=== PATIENT | male | born 1980 | race Caucasian/White ===

== ENCOUNTER 2019-03-07 22:18 | Emergency (ER) | payer OTHER, SELFPAY ==
[2019-03-07 22:23] VITALS: BP 131/91; PULSE 100; RESP 18; TEMP 36.6; O2SAT 95
--- NOTE | 2019-03-07 22:35 | W.ED.GENAD ---
Discharge Plan Disposition Patient Disposition: HOME Discharge Details Chief Complaint: Laceration Clinical Impression: Laceration of finger of right hand Primary Care Provider: Kay Tom ED Provider: Mark Gustasfon Home Meds and New Rx's Prescriptions: Continued albuterol sulfate 90 mcg/actuation Hfa Aerosol Inhaler 2 puff INHALATION QID PRNRF: 0 Discharge Instructions Instructions: Finger Laceration (ED) Additional Instructions: Please contact your primary care physician or return to the emergency department for suture removal. Sutures need to be removed in 8-10 days. Return to the ER for any worsening or new concerning symptoms. Referrals: Kay Tom [Primary Care Provider] - Medical Decision Making 38-year-old male here with laceration to his right fifth digit. Neurovascular intact distally. Topical anesthetic applied. Finger Tourni-cot applied. Wound irrigated with copious sterile saline and repaired primarily with 4 sutures. Boostrix tetanus immunization given. HPI General Mode of arrival: ambulatory. Date/Time Provider Initiated Documentation: 03/07/19 22:35. Limitations to Documentation: no limitations. Information obtained by: patient. HPI Narrative: 38-year-old male here with laceration. Patient notes he sustained laceration to his right fifth digit just prior to arrival. Laceration occurred while washing dishes. He cut his finger on a broken glass. Laceration severe. Was initially bleeding. Bleeding controlled with pressure. No weakness or numbness. Related Data Home Medications Medication Instructions Recorded Confirmed albuterol sulfate 2 puff INHALATION QID PRN 03/07/19 03/07/19 Allergies Allergy/AdvReac Type Severity Reaction Status Date / Time azithromycin Allergy Unverified 03/07/19 22:25 Penicillins Allergy Unverified 03/07/19 22:25 General Stated Complaint: Laceration VIANNEY: 4 Review of Systems Integumentary/Breasts Reports as per HPI Neurologic Reports as per HPI [facility], [facility] Medical History Asthma (Chronic) Social History Smoking/Tobacco Use Status: Current every day Tobacco Type: cigarettes Smoking cigarettes per day: 3 Alcohol Intake: current Alcohol Intake frequency: a few times a week Drug use: Daily Substance use type: marijuana Do you feel safe at home: Yes Do you feel safe in your relationship?: Yes Exam Const General: cooperative and no acute distress Skin Trauma: laceration (Right fifth digit lateral mid finger, curvilinear, oozing blood) Extrem Right upper extremity: hand (Fifth digit laceration as noted above, two-point discrimination intact) Details: neuromotor exam normal, tendon exam normal and normal ROM of fingers Course Vital Signs Temperature 36.6 C 03/07/19 22:23 Pulse 100 H 03/07/19 22:23 Respiratory Rate 18 03/07/19 22:23 Blood Pressure 131/91 H 03/07/19 22:23 Pulse Oximetry 95 03/07/19 22:23 Temperature 36.6 C 03/07/19 22:23 Temperature Source Skin 03/07/19 22:23 Pulse 100 H 03/07/19 22:23 Respiratory Rate 18 03/07/19 22:23 Respiratory Effort Non-Labored 03/07/19 22:26 Blood Pressure 131/91 H 03/07/19 22:23 Blood Pressure Position Sitting 03/07/19 22:23 Pulse Oximetry 95 03/07/19 22:23 Oxygen Delivery Method Room Air 03/07/19 22:23 Oxygen Flow Rate 0 03/07/19 22:23 Pain Level 2 03/07/19 22:23 Procedures Laceration Laceration 1: Site: hand Side (If applicable): right Size (cm): 2 Description: linear Depth: simple, single layer Local Anesthetic: other anesthetic Pre-repair: wound explored, irrigated extensively, deep structures intact and extensive debridement Skin layer closed with: vicryl Size (cm): 5-0 Number of sutures: 4 Technique: simple, interrupted
--- NOTE | 2019-03-07 22:39 | ED.GENADUL_ITS ---
Discharge Plan Disposition Patient Disposition: HOME Discharge Details Chief Complaint: Laceration Clinical Impression: Laceration of finger of right hand Primary Care Provider: Kay Tom ED Provider: Mark Gustafson Home Meds and New Rx's Prescriptions: Continued albuterol sulfate 90 mcg/actuation Hfa Aerosol Inhaler 2 puff INHALATION QID PRNRF: 0 Discharge Instructions Instructions: Finger Laceration (ED) Additional Instructions: Please contact your primary care physician or return to the emergency department for suture removal. Sutures need to be removed in 8-10 days. Return to the ER for any worsening or new concerning symptoms. Referrals: Kay Tom [Primary Care Provider] - Medical Decision Making 38-year-old male here with laceration to his right fifth digit. Neurovascular intact distally. Topical anesthetic applied. Finger Tourni-cot applied. Wound irrigated with copious sterile saline and repaired primarily with 4 sutures. Boostrix tetanus immunization given. HPI General Mode of arrival: ambulatory . Date/Time Provider Initiated Documentation: 03/07/19 22:35 . Limitations to Documentation: no limitations . Information obtained by: patient . HPI Narrative: 38-year-old male here with laceration. Patient notes he sustained laceration to his right fifth digit just prior to arrival. Laceration occurred while washing dishes. He cut his finger on a broken glass. Laceration severe. Was initially bleeding. Bleeding controlled with pressure. No weakness or numbness. Related Data Home Medications Medication Instructions Recorded Confirmed albuterol sulfate 2 puff INHALATION QID PRN 03/07/19 03/07/19 Allergies Allergy/AdvReac Type Severity Reaction Status Date / Time azithromycin Allergy Unverified 03/07/19 22:25 Penicillins Allergy Unverified 03/07/19 22:25 General Stated Complaint: Laceration VIANNEY: 4 Review of Systems Integumentary/Breasts Reports as per HPI Neurologic Reports as per HPI [facility] Medical History Asthma (Chronic) Social History Smoking/Tobacco Use Status: Current every day Tobacco Type: cigarettes Smoking cigarettes per day: 3 Alcohol Intake: current Alcohol Intake frequency: a few times a week Drug use: Daily Substance use type: marijuana Do you feel safe at home: Yes Do you feel safe in your relationship?: Yes Exam Const General: cooperative and no acute distress Skin Trauma: laceration (Right fifth digit lateral mid finger, curvilinear, oozing blood) Extrem Right upper extremity: hand (Fifth digit laceration as noted above, two-point discrimination intact) Details: neuromotor exam normal, tendon exam normal and normal ROM of fingers Course Vital Signs Temperature 36.6 C 03/07/19 22:23 Pulse 100 H 03/07/19 22:23 Respiratory Rate 18 03/07/19 22:23 Blood Pressure 131/91 H 03/07/19 22:23 Pulse Oximetry 95 03/07/19 22:23 Temperature 36.6 C 03/07/19 22:23 Temperature Source Skin 03/07/19 22:23 Pulse 100 H 03/07/19 22:23 Respiratory Rate 18 03/07/19 22:23 Respiratory Effort Non-Labored 03/07/19 22:26 Blood Pressure 131/91 H 03/07/19 22:23 Blood Pressure Position Sitting 03/07/19 22:23 Pulse Oximetry 95 03/07/19 22:23 Oxygen Delivery Method Room Air 03/07/19 22:23 Oxygen Flow Rate 0 03/07/19 22:23 Pain Level 2 03/07/19 22:23 Procedures Laceration Laceration 1: Site: hand Side (If applicable): right Size (cm): 2 Description: linear Depth: simple, single layer Local Anesthetic: other anesthetic Pre-repair: wound explored, irrigated extensively, deep structures intact and extensive debridement Skin layer closed with: vicryl Size (cm): 5-0 Number of sutures: 4 Technique: simple, interrupted
[2019-03-07] MEDS: Lidocaine/Epinephri/Tetracaine Topical Gel 3 ML TP (22:50)
--- NOTE | 2019-03-07 23:12 | DI.RAD_ITS ---
SYMPTOM/DIAGNOSIS: LACERATION RIGHT FIFTH FINGER: No acute fracture or dislocation is identified. No radiopaque foreign bodies are seen in the soft tissues. IMPRESSION: No acute abnormality.
--- NOTE | 2019-03-08 00:36 | DI.VRAD_ITS ---
EXAM: XR Right Finger(s), 2 or More Views EXAM DATE/TIME: 03/07/2019 11:13 PM CLINICAL HISTORY: 38 years old, male; Signs and symptoms; Other: Laceration TECHNIQUE: Imaging protocol: XR Right finger minimum 2 views. COMPARISON: No relevant prior studies available. FINDINGS: Bones/joints: Joint spaces are maintained. No acute fracture or dislocation. Soft tissues: No radiopaque foreign body. IMPRESSION: No acute fracture or dislocation. Dictated and Authenticated by: Brandon Brooks MD. Ordering:TAZ Flores MD
== END 2019-03-07 23:49 | disposition home or self-care (01) ==
PROVIDERS: Emergency Provider Student in an Organized Health Care Education/Training Program; PCP Nurse Practitioner Family
DX: S61.216A Laceration without foreign body of right little finger without damage to nail, initial encounter (principal); W25.XXXA Contact with sharp glass, initial encounter
CPT/HCPCS: 12001; 90471; 99283; 73140; 99282

== ENCOUNTER 2019-05-12 07:53 | Outpatient (REF) | payer OTHER, SELFPAY ==
[2019-05-12 12:24] LABS: Anion Gap 9.8 mmol/L (3-11); BUN 19 mg/dL (7-18); CO2 25.2 mmol/L (21.0-32.0); CREATININE 1.12 mg/dL (0.70-1.30); Calcium 9.1 mg/dL (8.5-10.1); Calculated LDL 120; Chloride 102 mmol/L (98-107); Cholesterol 188 mg/dL (50-200); Glucose 107 mg/dL (70-100); HDL Cholesterol 43 mg/dL (40-60); Potassium 4.2 mmol/L (3.5-5.1); Sodium 137 mmol/L (136-145); Triglyceride 128 mg/dL (30-150)
== END 2019-05-12 08:13 ==
LOC: NCHCN 07:53
PROVIDERS: PCP Nurse Practitioner Family; Visit Provider Nurse Practitioner Family
DX: Z13.220 Encounter for screening for lipoid disorders (principal); Z13.1 Encounter for screening for diabetes mellitus; Z83.3 Family history of diabetes mellitus
CPT/HCPCS: 80048; 80061; 83721

== ENCOUNTER 2021-05-14 21:08 | Outpatient (REF) | payer OTHER, SELFPAY ==
[2021-05-14 14:10] LABS: HCT 45.3 % (40.0-50.0); HGB 15.6 g/dL (13.5-17.5); MCHC 34.4 % (32.0-36.0); MCV 95.8 fL (80-95); MPV 9.5 fL (8.0-11.0); Platelet Count 268 10^3/uL (130-400); RBC 4.73 10^6/uL (4.36-5.78); RDW 12.3 % (11.8-14.1); RDW-SD 43.7 fL; WBC 6.33 10^3/uL (4.4-10.8)
[2021-05-14 14:40] LABS: ALT 48 U/L (16-63); AST 26 U/L (15-37); Albumin 4.1 g/dL (3.4-5.0); Alkaline Phosphatase 84 U/L (46-116); Anion Gap 12.3 mmol/L (3-11); BUN 13 mg/dL (7-18); Bilirubin, Total 0.6 mg/dL (0.2-1.0); CO2 23.7 mmol/L (21.0-32.0); CREATININE 1.1 mg/dL (0.70-1.30); Calcium 9.4 mg/dL (8.5-10.1); Chloride 105 mmol/L (98-107); Glucose 118 mg/dL (74-106); Sodium 141 mmol/L (136-145); TSH (W/Ref FT4) 2.27 uIU/mL (0.36-3.74); Total Protein 7.3 g/dL (6.4-8.2)
== END 2021-05-14 21:09 | disposition home or self-care (01) ==
LOC: NCHCN 21:08
PROVIDERS: PCP Nurse Practitioner Family; Visit Provider Family Medicine
DX: R63.4 Abnormal weight loss (principal); R25.1 Tremor, unspecified
CPT/HCPCS: 80053; 85027; 84443

== ENCOUNTER 2023-11-30 14:57 | Outpatient (REF) | payer OTHER, SELFPAY ==
[2023-11-30 15:30] LABS: Abs Immature Grans 0.01 10^3/uL (0.0-0.06); Absolute Basophil Count 0.03 10^3/uL (0.0-0.2); Absolute Eosinophil Count 0.11 10^3/uL (0.0-0.7); Absolute Monocyte Count 0.52 10^3/uL (0.1-0.8); Absolute Neutrophil Count 3.33 10^3/uL (1.2-6.7); Basophils % 0.6; Eosinophils % 2.2; HCT 41.3 % (40.0-50.0); HGB 13.9 g/dL (13.5-17.5); Immature Grans % 0.2; MCH 30.9 pg (27.0-33.0); MCHC 33.7 % (32.0-36.0); MCV 92 fL (80-95); MPV 9.1 fL (8.0-11.0); Monocytes % 10.4; Neutrophils % 66.6; Platelet Count 335 10^3/uL (130-400); RDW 12.3 % (11.8-14.1); RDW-SD 41.2 fL
[2023-11-30 16:13] LABS: Hemoglobin A1C 5.1 % (<5.7)
[2023-11-30 16:30] LABS: ALT 53 U/L (16-63); AST 33 U/L (15-37); Albumin 4.2 g/dL (3.4-5.0); Alkaline Phosphatase 99 U/L (46-116); Anion Gap 8.6 mmol/L (3-11); BUN 14 mg/dL (7-18); Bilirubin, Total 0.4 mg/dL (0.2-1.0); CO2 27.4 mmol/L (21.0-32.0); CREATININE 1.1 mg/dL (0.70-1.30); Calcium 9.3 mg/dL (8.5-10.1); Calculated LDL 129 mg/dL (<100); Chloride 102 mmol/L (98-107); Cholesterol 194 mg/dL (<200); Estimated GFR 84.37 (mL/min/1.73m2); Glucose 100 mg/dL (74-106); HDL Cholesterol 53 mg/dL (40-60); Potassium 4.1 mmol/L (3.5-5.1); Sodium 138 mmol/L (136-145); Triglyceride 60 mg/dL (<150)
== END 2023-11-30 14:58 | disposition home or self-care (01) ==
LOC: NCHCN 14:57
PROVIDERS: PCP Nurse Practitioner Family; Visit Provider Nurse Practitioner Family
DX: R73.03 Prediabetes (principal); F41.1 Generalized anxiety disorder; Z13.220 Encounter for screening for lipoid disorders
CPT/HCPCS: 80053; 80061; 83036; 85025

== ENCOUNTER 2024-08-02 10:00 | Emergency (ER) | payer OTHER, SELFPAY ==
[2024-08-02] VITALS (46 sets, daily range): BP systolic 123–175; BP diastolic 80–116; PULSE 92–127; RESP 8–26; TEMP 35.5; O2SAT 89–97
--- NOTE | 2024-08-02 10:00 | RT.EKG_ITS ---
APPROVED REPORT Exam: Resting ECG Reason for Exam: SOB Patient Location: E HR:122 bpm ECG Measurements Heart Rate 122 AXIS [place] 167 P 71 QRSd 102 QRS 68 QT 313 T 256 QTc 446 Conclusion Sinus tachycardia...rate> 99 sinus tach, normal axis, normal intervals, non iscemic
--- NOTE | 2024-08-02 10:45 | DI.CT_ITS ---
Exam(s) CT CHEST PE CTA EXAM: CT CHEST PE CTA CLINICAL HISTORY: sob, tachy, syncope. TECHNIQUE: Imaging Protocol: Axial CT angiography was performed with multi-slice acquisition and mu lti-planar and/or 3D reconstructions. CONTRAST MATERIAL: Intravenous: Omnipaque 350 contrast volume:100 mL COMPARISON: No exams were available for comparison FINDINGS: Tracheobronchial tree: Patent where visualized. No bronchiectasis. Pulmonary parenchyma: There is a ground-glass infiltrate in the right upper and right middle lobes. No architectural distortion. Pulmonary Arteries: No evidence of filling defect to suggest pulmonary emboli. Mediastinum and Krista: No dominant adenopathy or fluid collection. The esophagus is unremarkable. Visualized thyroid gland: Unremarkable. Pleura: No effusion or pneumothorax. Heart: The heart is not dilated. No coronary artery calcifications are seen. No pericardial effusion. Aorta: Thoracic aorta non-dilated. No evidence of dissection. Mild atherosclerotic calcification is p resent. Upper abdomen: Unremarkable. Soft tissues: Mild gynecomastia. Bones: Within normal limits for the patient's age. IMPRESSION: 1. No evidence of pulmonary embolism, thoracic aortic dissection or aneurysm. 2. Ground-glass infiltrate in the right upper and right middle lobes. This may represent infectious or inflammatory process. COVID 19 should be considered. RADIATION DOSE DELIVERED: 133.04mGy.cm Total DLP DATA REPOSITORY: All CT scans at this facility are submitted to the National Radiology Data Registry (NRDR) Dose Index Registry (DIR) with the [employer] ([employer]). RADIATION OPTIMIZATION: All CT scans at this facility use at least one of these dose optimization te chniques: automated exposure control; mA and/or kV adjustment per patient size (includes targeted exa ms where dose is matched to clinical indication); or iterative reconstruction.
[2024-08-02 10:46] LABS: Abs Immature Grans 0.02 10^3/uL (0.0-0.06); Absolute Basophil Count 0.03 10^3/uL (0.0-0.2); Absolute Eosinophil Count 0.09 10^3/uL (0.0-0.7); Absolute Lymphocyte Count 0.39 10^3/uL (1.2-3.4); Absolute Neutrophil Count 8.13 10^3/uL (1.2-6.7); Basophils % 0.3 %; HCT 41.1 % (40.0-50.0); HGB 13.3 g/dL (13.5-17.5); Immature Grans % 0.2 %; Lymphocytes % 4.2 %; MCH 28.8 pg (27.0-33.0); MCHC 32.4 % (32.0-36.0); MCV 89 fL (80-95); MPV 9.2 fL (8.0-11.0); Monocytes % 7.5 %; Neutrophils % 86.8 %; Platelet Count 246 10^3/uL (130-400); RBC 4.62 10^6/uL (4.36-5.78); RDW 12.9 % (11.8-14.1); RDW-SD 41.7 fL; WBC 9.36 10^3/uL (4.4-10.8)
[2024-08-02 10:48] LABS: BE (Venous) 0 mmol/L (-2-3); HCO3 (Venous) 26 mmol/L (23-28); O2 Sat (Venous) 77 %; TCO2 (Venous) 23 mmol/L (24-29); pCO2 (Venous) 43 mmHg (41-51); pH (Venous) 7.38 (7.31-7.41); pO2 (Venous) 42 mmHg
[2024-08-02] MEDS: Normal Saline 1,000 ML 1000 ML IV (10:59)
[2024-08-02] MEDS: ACETAMINOPHEN 1,000 MG/100 ML BTL 400 MG IVPB (10:59)
--- NOTE | 2024-08-02 11:11 | ED.GENADUL_ITS ---
Discharge Plan Disposition Patient Disposition: Home Condition: Improving Discharge Details Clinical Impression: Pneumonia Primary Care Provider: Unknown,Unknown ED Provider: Aureliano Lopez Home Meds and New Rx's Prescriptions: New levofloxacin 750 mg tablet 750 mg PO DAILY 7 Days Qty: 7 0RF No Action albuterol sulfate 90 mcg/actuation Hfa Aerosol Inhaler 2 puff INHALATION QID PRN Discharge Instructions Instructions: Pneumonia in adults Additional Instructions: Please follow-up with your primary care physician. Please return to the emergency department for any worsening symptoms HPI General Date/Time Provider Initiated Documentation: 08/02/24 10:04 . HPI Narrative: 44-year-old male history of exercise-induced asthma presents with 3 days of shortness of breath associated with nonradiating central chest discomfort described as a pressure-like sensation has been using albuterol at home without relief denies recent travel recent immobilization recent injury denies history of thromboembolic disease or coronary disease. Related Data Home Medications ?Medication ?Instructions ?Recorded ?Confirmed albuterol sulfate 90 mcg/actuation 2 puff inhalation QID PRN 03/07/19 08/02/24 aerosol inhaler levofloxacin 750 mg tablet 750 mg PO DAILY 7 days #7 tabs 08/02/24 Previous Rx's ?Medication ?Instructions ?Recorded levofloxacin 750 mg tablet 750 mg PO DAILY 7 days #7 tabs 08/02/24 Allergies Allergy/AdvReac Type Severity Reaction Status Date / Time azithromycin Allergy Unknown Verified 08/02/24 10:08 Penicillins Allergy Unknown Verified 08/02/24 10:08 General Stated Complaint: SOB VIANNEY: 3 Exam Narrative Exam Narrative: Appears fatigued pale and diaphoretic Slight drying of oromucosa Mild expiratory wheeze bilaterally without rales rhonchi, no retractions Normal heart sounds Abdomen soft nontender nondistended Pallor diaphoretic skin Alert oriented moving all extremities No peripheral edema Course Vital Signs Vital signs: Vital Signs Temperature 35.5 C L 08/02/24 10:02 Pulse 127 H 08/02/24 10:02 Respiratory Rate 16 08/02/24 10:02 Blood Pressure 123/94 H 08/02/24 10:02 Pulse Oximetry 92 08/02/24 10:02 Temperature 35.5 C L 08/02/24 10:02 Temperature Source Temporal Artery Scan 08/02/24 10:02 Pulse 107 H 08/02/24 11:01 Pulse 106 H 08/02/24 11:01 Respiratory Rate 15 08/02/24 11:01 Respiratory Effort Short of Breath, Labored 08/02/24 10:44 Respiratory Depth Normal 08/02/24 10:44 Respiratory Pattern Tachypnea 08/02/24 10:44 Blood Pressure 131/80 08/02/24 11:01 Blood Pressure Mean 96 08/02/24 11:01 Blood Pressure Position Sitting 08/02/24 10:02 Pulse Oximetry 92 08/02/24 11:01 Oxygen Delivery Method Room Air 08/02/24 10:02 Oxygen Flow Rate 0 08/02/24 10:02 Pain Level 0 08/02/24 11:06 Lab/Test Results Lab/Test Results: 08/02/24 10:39 Blood Blood Culture - Pending 08/02/24 10:17 Blood Blood Culture - Pending Laboratory Tests Range/Units 08/02/24 10:39 WBC (4.4-10.8) 10^3/uL 9.36 RBC (4.36-5.78) 10^6/uL 4.62 Hgb (13.5-17.5) g/dL 13.3 L Hct (40.0-50.0) % 41.1 MCV (80-95) fL 89 MCH (27.0-33.0) pg 28.8 MCHC (32.0-36.0) % 32.4 RDW (11.8-14.1) % 12.9 Plt Count (130-400) 10^3/uL 246 MPV (8.0-11.0) fL 9.2 Immature Gran % % 0.2 Neutrophils % % 86.8 Lymphocytes % % 4.2 Monocytes % % 7.5 Eosinophils % % 1.0 Basophils % % 0.3 Nucleated RBC % (0.0-0.3) % 0.0 Absolute Neutrophils (1.2-6.7) 10^3/uL 8.13 H Absolute Lymphocytes (1.2-3.4) 10^3/uL 0.39 L Absolute Monocytes (0.1-0.8) 10^3/uL 0.70 Absolute Eosinophils (0.0-0.7) 10^3/uL 0.09 Absolute Basophils (0.0-0.2) 10^3/uL 0.03 VBG pH (7.31-7.41) 7.38 VBG pCO2 (41-51) mmHg 43 VBG pO2 mmHg 42 VBG HCO3 (23-28) mmol/L 26 VBG Total CO2 (24-29) mmol/L 23 L VBG O2 Saturation % 77 VBG Base Excess (-2-3) mmol/L 0 Medical Decision Making 44-year-old male presents with 3 days of shortness of breath and anterior chest pressure nonradiating, afebrile normotensive however noted to be tachycardic on arrival EKG sinus tachycardia, noted to be pale and diaphoretic, no peripheral edema, mild wheeze expiratory bilaterally speaking full sentences, saturating 92 to 93% on room air, consider pneumonia with component of asthma exacerbation versus viral respiratory illness versus PE versus CHF versus ACS lower suspicion for aortic pathology or pneumothorax. Bedside ultrasound showing normal contractility of left ventricle, no pleural effusion no pericardial effusion, consider dilated RV with ratio approaching 1-1 increasing pretest probability for possible thromboembolic disease, have canceled chest x-ray and sending patient for stat CTA chest will start dexamethasone in the interim as patient does have some component of wheezing and history of asthma; will obtain troponins basic labs light fluid at this time acetaminophen close reassessment 14: 42 evidence of right-sided pneumonia; patient doing much better after nebs steroids magnesium and antibiotics. Will transition to oral antibiotics. Patient be discharged home home care instructions and strict return precautions given. Quality:SDOH Health Related Social Needs: No Data to Display PFSH All Active Problems (Updated 08/02/24 @ 14:45 by Aureliano Lopez MD) Pneumonia (Acute) Medical History (Updated 08/02/24 @ 14:45 by Aureliano Lopez MD) Asthma Social History Smoking/Tobacco Use Status: Current every day Tobacco Type: cigarettes Smoking risk assessment performed?: Yes Alcohol Intake: current Alcohol Intake frequency: a few times a week Drug use: Daily Substance use type: marijuana Do you feel safe at home: Yes Do you feel safe in your relationship?: Yes
[2024-08-02 11:14] LABS: PTT Activated 27.3 sec (23.6-32.8); Prothrombin Time 10.1 sec (9.1-11.1)
[2024-08-02 11:19] LABS: ALT 41 U/L (16-63); AST 34 U/L (15-37); Albumin 4.5 g/dL (3.4-5.0); Alkaline Phosphatase 114 U/L (46-116); Anion Gap 9.2 mmol/L (3-11); BUN 13 mg/dL (7-18); CO2 26.8 mmol/L (21.0-32.0); CREATININE 1.2 mg/dL (0.70-1.30); Calcium 9.8 mg/dL (8.5-10.1); Chloride 102 mmol/L (98-107); Estimated GFR 75.53 (mL/min/1.73m2); Glucose 123 mg/dL (74-106); Magnesium 2.3 mg/dL (1.8-2.4); NT-proBNP 198 pg/mL (<300); Potassium 4.2 mmol/L (3.5-5.1); Sodium 138 mmol/L (136-145); Total Protein 8.9 g/dL (6.4-8.2); Troponin I < 50 ng/L (< or =60)
[2024-08-02 11:23] LABS: COVID-19 PCR Negative (Negative); Influenza A PCR Negative (Negative); Influenza B PCR Negative (Negative); RSV PCR Negative (Negative)
[2024-08-02 11:24] LABS: Source Nasopharynx
[2024-08-02 11:27] LABS: Bilirubin Small (Negative); Blood Negative (Negative); Clarity Clear (Clear); Glucose Negative (Negative); Ketones 40 mg/dL (Negative); Leukocyte Esterase Negative (Negative); Nitrite Negative (Negative); Specific Gravity >= 1.030 (1.005-1.025); Urobilinogen 0.2 mg/dL (Up to 0.2); pH 5.5 (5-8)
[2024-08-02] MEDS: Normal Saline - Diluent 50 ML VIAL IJ (11:44)
[2024-08-02] MEDS: Omnipaque 350 MG/ML 500 ML BTL-Imaging package 100 ML IJ (11:45)
[2024-08-02] MEDS: Albuterol/Ipratropium 3 ML UPD VIAL 9 ML UPD (12:09)
[2024-08-02] MEDS: Dexamethasone 10 MG/ML VIAL IVP (12:09)
[2024-08-02] MEDS: MAGNESIUM SULFATE 1 GM/100 ML BAG IVINF (12:12)
[2024-08-02 13:06] LABS: Troponin I < 50 ng/L (< or =60)
[2024-08-02] MEDS: levoFLOXacin 750 MG/150 ML BAG 100 MG IVPB (13:09)
== END 2024-08-02 15:07 | disposition home or self-care (01) ==
PROVIDERS: Emergency Provider Emergency Medicine
DX: J18.9 Pneumonia, unspecified organism (principal); J45.990 Exercise induced bronchospasm; R00.0 Tachycardia, unspecified; F17.210 Nicotine dependence, cigarettes, uncomplicated
CPT/HCPCS: 71275; 80053; 82805; 82962; 86850; 86900; 86901; 87040; 87637; 93005; 94640; 96365; 96366; 96367; 96375; 99285; 81003; 83735; 83880; 84484; 85025; 85610; 85730; 93010; 99284; J0131; J1100; J1956; J3475; J7620

== ENCOUNTER 2024-09-27 13:32 | Outpatient (CLI) | payer OTHER, SELFPAY ==
--- NOTE | 2024-09-27 13:00 | DI.RAD_ITS ---
Exam(s) XR CHEST 2V PA LATERAL EXAM: XR CHEST 2V PA LATERAL CLINICAL HISTORY: SOB, R06.02, evaluate PNA TECHNIQUE: 2D digital imaging was performed. Two views. COMPARISON: No exams were available for comparison FINDINGS: HEART: Normal size. Aorta: Not dilated. PULMONARY VASCULATURE: Normal. MEDIASTINUM: Unremarkable. LUNGS: Clear. PLEURAL SPACE: No pleural effusion or pneumothorax. BONE:Unremarkable for age. SOFT TISSUES: Unremarkable. IMPRESSION: No acute abnormality. DATA REPOSITORY: RADIATION DOSE DELIVERED:
== END 2024-09-27 13:52 ==
LOC: DI 13:32
PROVIDERS: Visit Provider Nurse Practitioner Family
DX: R06.02 Shortness of breath (principal)
CPT/HCPCS: 71046

== ENCOUNTER 2024-09-27 13:34 | Outpatient (CLI) | payer OTHER, SELFPAY ==
[2024-09-27 14:16] LABS: D-Dimer 230 ng/mlFEU (<500)
== END 2024-09-27 13:35 | disposition home or self-care (01) ==
LOC: LBO 13:34
PROVIDERS: Visit Provider Nurse Practitioner Family
DX: R06.02 Shortness of breath (principal); R68.89 Other general symptoms and signs; R06.2 Wheezing; J45.41 Moderate persistent asthma with (acute) exacerbation
CPT/HCPCS: 36415; 85379

== ENCOUNTER 2024-12-12 18:00 | Outpatient (REF) | payer OTHER, SELFPAY ==
[2024-12-12 16:14] LABS: Abs Immature Grans 0.01 10^3/uL (0.0-0.06); Absolute Basophil Count 0.05 10^3/uL (0.0-0.2); Absolute Eosinophil Count 0.38 10^3/uL (0.0-0.7); Absolute Lymphocyte Count 1.03 10^3/uL (1.2-3.4); Absolute Monocyte Count 0.47 10^3/uL (0.1-0.8); Absolute Neutrophil Count 4.66 10^3/uL (1.2-6.7); Basophils % 0.8 %; Eosinophils % 5.8 %; HCT 37.8 % (40.0-50.0); Immature Grans % 0.2 %; Lymphocytes % 15.6 %; MCH 26.8 pg (27.0-33.0); MCHC 31.7 % (32.0-36.0); MCV 85 fL (80-95); MPV 11.1 fL (8.0-11.0); Monocytes % 7.1 %; Neutrophils % 70.5 %; Platelet Count 142 10^3/uL (130-400); RBC 4.47 10^6/uL (4.36-5.78); RDW 14.4 % (11.8-14.1); RDW-SD 44.1 fL
[2024-12-12 17:10] LABS: Hemoglobin A1C 5.4 % (<5.7)
== END 2024-12-12 18:01 | disposition home or self-care (01) ==
LOC: NCHCN 18:00
PROVIDERS: Visit Provider Nurse Practitioner Family
DX: Z13.220 Encounter for screening for lipoid disorders (principal); R73.03 Prediabetes; F41.1 Generalized anxiety disorder
CPT/HCPCS: 80053; 82607; 82728; 82746; 83036; 83540; 83550; 83735; 85025

== ENCOUNTER 2025-04-16 13:24 | Outpatient (REF) | payer OTHER, SELFPAY ==
[2025-04-16 17:29] LABS: Iron 18 ug/dL (65-175); Total Iron Binding Capacity 518 ug/dL (250-450); Transferrin Sat 3 % (20-55)
[2025-04-16 18:06] LABS: ALT 32 U/L (16-63); AST 24 U/L (15-37); Albumin 4.2 g/dL (3.4-5.0); Alkaline Phosphatase 106 U/L (46-116); Anion Gap 8.1 mmol/L (3-11); BUN 16 mg/dL (7-18); Bilirubin, Total 0.3 mg/dL (0.2-1.0); CO2 28.9 mmol/L (21.0-32.0); CREATININE 1.2 mg/dL (0.70-1.30); Calcium 9.5 mg/dL (8.5-10.1); Chloride 102 mmol/L (98-107); Estimated GFR 75.53 (mL/min/1.73m2); Ferritin 9 ng/mL (26-388); Glucose 109 mg/dL (74-106); Magnesium 2.2 mg/dL (1.8-2.4); Potassium 4.2 mmol/L (3.5-5.1); Sodium 139 mmol/L (136-145); Total Protein 7.9 g/dL (6.4-8.2); Vitamin B12 463 pg/mL (193-986)
[2025-04-16 18:07] LABS: Folate > 20.0 ng/mL (8.6-20.0)
== END 2025-04-16 13:25 | disposition home or self-care (01) ==
LOC: NCHCN 13:24
PROVIDERS: Visit Provider Nurse Practitioner Family
DX: R55 Syncope and collapse (principal)
CPT/HCPCS: 80053; 82607; 82728; 82746; 83540; 83550; 83735

== ENCOUNTER 2025-08-13 15:48 | Emergency (ER) | payer OTHER, SELFPAY ==
[2025-08-13 15:50] VITALS: BP 167/117; PULSE 88; RESP 18; TEMP 36.6; O2SAT 98
--- NOTE | 2025-08-13 16:28 | DI.RAD_ITS ---
Exam(s) XR HIP RT COMPLETE AP PELVIS EXAM: XR HIP RT COMPLETE AP PELVIS CLINICAL HISTORY: Right hip pain. TECHNIQUE: 2D digital imaging was performed. COMPARISON: No exams were available for comparison FINDINGS: 3 views No evidence of pelvic nor hip fractures. No degenerative changes. Additional frog-lateral views of the right hip reveal no additional findings. There is no hip joint space narrowing. Sacroiliac joints appear unremarkable. Bone density pelvis is normal and there are no osseous lesions. IMPRESSION: No significant radiograph findings in the hips and pelvis. DATA REPOSITORY: RADIATION DOSE DELIVERED:
--- NOTE | 2025-08-13 16:52 | ED.GENADUL_ITS ---
Discharge Plan Disposition Patient Disposition: Home Condition: Stable Discharge Details Clinical Impression: Strain of muscle, fascia and tendon of right hip, initial encounter Primary Care Provider: Unknown,Unknown ED Provider: Claudine Deshpande Home Meds and New Rx's Prescriptions: New lidocaine 5 % adhesive patch,medicated 1 patch topical DAILY PRN (Reason: Right hip pain) Qty: 15 0RF Rx Instructions: leave on most painful area for up to 12 hrs No Action prednisone 20 mg tablet 40 mg PO DAILY Qty: 10 0RF Rx Instructions: take in the morning with food. take 2 pills daily x 5 days albuterol sulfate 90 mcg/actuation Hfa Aerosol Inhaler 2 puff INHALATION QID PRN Discharge Instructions Instructions: Hip pain in adults, Muscle Strain ED Additional Instructions: At this time the x-ray shows no acute bony abnormality no evidence of arthritis or degenerative changes. I do suspect that you did strain the muscle and tendon fascia around the area. Please alternate ice and heat, he may use the lidocaine patches as directed Place 1 patch on for 24 hours and leave off for 24 hours. You may also use [id number] IcyHot or similar. Please take Tylenol or Ibuprofen with food every 4-6 hours as needed for pain and swelling. Consider massage or chiropractor if no better in the next 1 to 2 weeks. Follow up with primary care provider in 3-5 days. Return to ED sooner if any worsening pain, numbness tingling, severe weakness, loss of bowel or bladder control, swelling in your groin, dizziness, chest pain vomiting or concerns. A referral for physical therapy was given also, please call for appointment Stand Alone Forms: Physical Therapy Referral, Work Release Referrals: Primary Care Provider [Outside] - 2 weeks Referral Note: ER follow up call for appt or to establish care Kathleen Horne NP [NURSE PRACTITIONER, Medicine] Referral Note: ER follow up call for appt or to establish care Clinical Impression: Strain of muscle, fascia and tendon of right hip, initial encounter Discharge Data Discharge Date/Time-TO BE ENTERED AT DEPARTURE: 08/13/25 17:22 HPI General Mode of arrival: ambulatory . Date/Time Provider Initiated Documentation: 08/13/25 15:54 . Limitations to Documentation: no limitations . Information obtained by: patient, RN notes reviewed and old records reviewed . HPI Narrative: 45-year-old male presents to the ER with a chief complaint of right hip pain which began having acutely approximately an hour prior to arrival while putting on shoes. He reports that he bent over and twisted and had a sharp shooting pain down to his knee. He is walking with a stiff gait. Denies any falls or recent trauma. Denies any previous episodes like this. Denies any heavy lifting or back pain. Does have a history of asthma. Was not taking any Tylenol or ibuprofen prior to arrival. I did offer analgesic which patient declined. Denies any groin pain, trouble urinating or swelling in his groin. No other associated symptoms or complaints. Distal CMS intact. Related Data Home Medications ?Medication ?Instructions ?Recorded ?Confirmed albuterol sulfate 90 mcg/actuation 2 puff inhalation Q ID PRN 03/07/19 08/13/25 aerosol inhaler Held on 08/13/25. Instructions: Pt Stopped/Never Started prednisone 20 mg tablet 40 mg (2 x 20 mg) PO DAILY # 10 tabs 09/27/24 08/13/25 Held on 08/13/25. Instructions: Pt Stopped/Never Started lidocaine 5 % topical patch 1 patch topical DAILY PRN Right 08/13/25 hip pain #15 ea Previous Rx's ?Medication ?Instructions ?Recorded prednisone 20 mg tablet 40 mg (2 x 20 mg) PO DAILY # 10 tabs 09/27/24 Held on 08/13/25. Instructions: Pt Stopped/Never Started lidocaine 5 % topical patch 1 patch topical DAILY PRN Right 08/13/25 hip pain #15 ea Allergies Allergy/AdvReac Type Severity Reaction Status Date / Time azithromycin Allergy Unknown Verified 08/13/25 15:54 Penicillins Allergy Unknown Verified 08/13/25 15:54 Sulfa (Sulfonamide Allergy Hives Verified 08/13/25 15:54 Antibiotics) General Stated Complaint: Orthopedic VIANNEY: 3 Review of Systems ENT Ears, Nose, Mouth, and Throat: Denies neck pain Musculoskeletal Musculoskeletal: Reports as per HPI, Reports arthralgias, Reports limited range of motion, Denies neck pain, Denies numbness, Reports radiating pain into limb, Reports stiffness and Denies tingling Neurologic Neurologic: Denies numbness and Denies tingling Exam Back/Spine/Pelvis Back: no CVA tenderness Cervical Spine: normal cervical lordosis Thoracic/Lumbar Spine: thoraco-lumbar ROM limited Sacroiliac joints: on the right tender to palpation Back/spine/pelvis image: 2 1. Tenderness with palpation no crepitus or step-off palpated Course Vital Signs Vital signs: Vital Signs Temperature 36.6 C 08/13/25 15:50 Pulse 88 08/13/25 15:50 Respiratory Rate 18 08/13/25 15:50 Blood Pressure 167/117 H 08/13/25 15:50 Pulse Oximetry 98 08/13/25 15:50 Temperature 36.6 C 08/13/25 15:50 Pulse 88 08/13/25 15:50 Respiratory Rate 18 08/13/25 15:50 Blood Pressure 167/117 H 08/13/25 15:50 Pulse Oximetry 98 08/13/25 15:50 Oxygen Delivery Method Room Air 08/13/25 15:50 Oxygen Flow Rate 0 08/13/25 15:50 Pain Level 10 08/13/25 15:50 Medical Decision Making 45-year-old male presents to the ER with a chief complaint of right hip pain which began having acutely approximately an hour prior to arrival while putting on shoes. He reports that he bent over and twisted and had a sharp shooting pain down to his knee. He is walking with a stiff gait. Denies any falls or recent trauma. Denies any previous episodes like this. Denies any heavy lifting or back pain. Does have a history of asthma. Was not taking any Tylenol or ibuprofen prior to arrival. I did offer analgesic which patient declined. Denies any groin pain, trouble urinating or swelling in his groin. No other associated symptoms or complaints. Distal CMS intact. Differential diagnosis includes but not limited to musculoskeletal strain, arthritis, X-rays show no acute bony abnormality please see results below. Lidocaine patch and ice pack ordered. Follow-up patient alternate Tylenol and ibuprofen alternate ice and heat. Encourage chiropractor and outpatient further evaluation and give strict return instructions. This text was generated using [employer] dictation system, please disregard any oddities of phrase or misspellings. Imaging Data Radiologic Study: Imaging: X-Ray Radiologist's impression: Exam(s) XR HIP RT COMPLETE AP PELVIS EXAM: XR HIP RT COMPLETE AP PELVIS CLINICAL HISTORY: Right hip pain. TECHNIQUE: 2D digital imaging was performed. COMPARISON: No exams were available for comparison FINDINGS: 3 views No evidence of pelvic nor hip fractures. No degenerative changes. Additional frog-lateral views of the right hip reveal no additional findings. There is no hip joint space narrowing. Sacroiliac joints appear unremarkable. Bone density pelvis is normal and there are no osseous lesions. IMPRESSION: No significant radiograph findings in the hips and pelvis. PFSH All Active Problems (Updated 08/13/25 @ 17:12 by Claudine Deshpande NP) Strain of muscle, fascia and tendon of right hip, initial encounter (Acute) Medical History (Updated 08/13/25 @ 17:12 by Claudine Deshpande NP) Asthma Social History Smoking/Tobacco Use Status: Current every day Tobacco Type: cigarettes Smoking risk assessment performed?: Yes Alcohol Intake: current Alcohol Intake frequency: a few times a week Drug use: Daily Substance use type: marijuana Do you feel safe at home: Yes Do you feel safe in your relationship?: Yes
[2025-08-13] MEDS: Lidocaine 5% Patch 1 PATCH TP (17:05)
[2025-08-13 17:21] VITALS: BP 138/95; PULSE 80; RESP 16; O2SAT 96
== END 2025-08-13 17:22 | disposition home or self-care (01) ==
PROVIDERS: Emergency Provider Registered Nurse Emergency
DX: S76.011A Strain of muscle, fascia and tendon of right hip, initial encounter (principal); X50.1XXA Overexertion from prolonged static or awkward postures, initial encounter; Y93.89 Activity, other specified; Y92.018 Other place in single-family (private) house as the place of occurrence of the external cause; F17.210 Nicotine dependence, cigarettes, uncomplicated
CPT/HCPCS: 99283; 73502